=== PATIENT | female | born 1930 | race Caucasian/White ===

== ENCOUNTER 2017-11-01 15:16 | Inpatient (IN) ==
[2017-11-01] MEDS ORDERED: hydrALAZINE 20 MG/1 ML VIAL IV ONE ×2 (17:38→18:43)
[2017-11-01] MEDS ORDERED: SODIUM CHLORIDE 0.9% 1,000 ML IV PRN (18:34)
[2017-11-01] MEDS: CARVEDILOL 6.25 MG TABLET PO SCH (18:42)
[2017-11-01] MEDS ORDERED: FUROSEMIDE 20 MG TABLET PO PRN (19:35)
[2017-11-01] MEDS ORDERED: NITROGLYCERIN SL 0.4 MG TABLET SL PRN (19:35)
[2017-11-01] MEDS: CYANOCOBALAMIN 500 MCG TABLET PO SCH (20:49)
[2017-11-01] MEDS: FERROUS SULFATE 325 MG TABLET PO SCH (20:49)
[2017-11-01] MEDS: TERAZOSIN 1 MG CAPSULE PO SCH (20:50)
[2017-11-01] MEDS: ASPIRIN EC 81 MG TABLET PO SCH (20:50)
[2017-11-01] MEDS: CHOLECALCIFEROL 5,000 UNIT TABLET PO SCH (20:50)
[2017-11-01] MEDS: ACETAMINOPHEN 325 MG TABLET PO PRN (20:50)
[2017-11-01] MEDS ORDERED: KETOROLAC 30 MG/1 ML VIAL IV ONE (23:30)
[2017-11-02] MEDS: NITROGLYCERIN 2% OINT 1 INCH/GM PACK TOP SCH ×3 (01:14→14:44)
[2017-11-02] MEDS: ACETAMINOPHEN 325 MG TABLET PO PRN ×2 (04:43→09:22)
[2017-11-02] MEDS ORDERED: KETOROLAC 30 MG/1 ML VIAL IV ONE (06:00)
[2017-11-02 06:02] LABS: Basophils % 0.8 % (0.0-0.8); Eosinophils # 0.2 10*3/uL (0.0-0.87); Eosinophils % 3.3 % (0.00-10.9); Hematocrit 26.4 VOL% (35.7-47.0); Hemoglobin 8.1 GM/DL (12.0-16.0); Immature Granulocytes % 0.4 %; Immature Granulocytes Absolute 0.02 #; Lymphocytes # 1.3 10*3/uL (1.4-4.0); Lymphocytes % 25.4 % (21.3-54.2); Mean Corpuscular HGB Conc 30.7 GM/DL (32-36); Mean Corpuscular Hemoglobin 26 PG (27-34); Mean Corpuscular Volume 84.3 FL (87-102); Mean Platelet Volume 10.7 FL (9.6-12.0); Monocytes # 0.4 10*3/uL (0.11-0.8); Monocytes % 8.2 % (1.7-12.7); Neutrophils # 3.2 10*3/uL (1.4-7.4); Neutrophils % 61.9 % (38.7-73.9); Platelet Count 136 T/CUMM (130-400); Red Blood Count 3.13 MC/CUMM (3.8-5.5); Red Cell Distribution Width 16.4 % (9.3-17.3); White Blood Count 5.1 T/CUMM (4-12)
[2017-11-02] MEDS: ONDANSETRON 4 MG/2 ML VIAL IV PRN ×3 (06:17→21:26)
[2017-11-02 06:24] LABS: Calcium 8.6 MG/DL (8.5-10.1); Potassium 4.6 MMOL/L (3.5-5.1)
[2017-11-02] MEDS: hydrALAZINE 20 MG/1 ML VIAL IV PRN (06:39)
[2017-11-02] MEDS ORDERED: SODIUM CHLORIDE 0.65% NASAL SPRAY 45 ML BOTTLE BOTH NARES PRN (08:15)
[2017-11-02] MEDS: LEVOTHYROXINE 112 MCG TABLET PO SCH (09:22)
[2017-11-02] MEDS: LEFLUNOMIDE 10 MG TABLET PO SCH (09:22)
[2017-11-02] MEDS: CARVEDILOL 6.25 MG TABLET PO SCH (09:23)
[2017-11-02] MEDS: PANTOPRAZOLE 40 MG TABLET PO SCH (09:23)
[2017-11-02 10:25] LABS: Hematocrit 25.8 VOL% (35.7-47.0); Hemoglobin 8.2 GM/DL (12.0-16.0)
[2017-11-02 17:03] LABS: Hematocrit 25.4 VOL% (35.7-47.0); Hemoglobin 7.9 GM/DL (12.0-16.0)
[2017-11-02] MEDS ORDERED: SODIUM CHLORIDE 0.9% 1,000 ML IV PRN (18:54)
[2017-11-02] MEDS: TERAZOSIN 1 MG CAPSULE PO SCH (21:25)
[2017-11-02] MEDS: CHOLECALCIFEROL 5,000 UNIT TABLET PO SCH (21:25)
[2017-11-02] MEDS: ASPIRIN EC 81 MG TABLET PO SCH (21:25)
[2017-11-02] MEDS: CYANOCOBALAMIN 500 MCG TABLET PO SCH (21:25)
[2017-11-02] MEDS: CARVEDILOL 12.5 MG TABLET PO SCH (21:26)
[2017-11-02] MEDS: METHOCARBAMOL 750 MG TABLET PO PRN (21:26)
[2017-11-02] MEDS: FERROUS SULFATE 325 MG TABLET PO SCH (21:26)
[2017-11-02 23:03] LABS: Hematocrit 23.1 VOL% (35.7-47.0); Hemoglobin 7.1 GM/DL (12.0-16.0)
[2017-11-03] MEDS: ACETAMINOPHEN 325 MG TABLET PO PRN (00:05)
[2017-11-03] MEDS ORDERED: MORPHINE 4 MG/1 ML VIAL IV ONE (04:00)
[2017-11-03] MEDS: hydrALAZINE 20 MG/1 ML VIAL IV PRN ×2 (05:09→13:16)
[2017-11-03] MEDS: ONDANSETRON 4 MG/2 ML VIAL IV PRN ×3 (05:38→15:50)
[2017-11-03 05:42] LABS: Hematocrit 29.4 VOL% (35.7-47.0); Hemoglobin 9.3 GM/DL (12.0-16.0)
[2017-11-03 06:19] LABS: Calcium 8.8 MG/DL (8.5-10.1); Osmolality,Calculated 291.1 MOS/KG (273-304); Potassium 4.7 MMOL/L (3.5-5.1)
[2017-11-03 06:54] LABS: Risk Ratio 2.02; VLDL CHOLESTEROL 16.4 MG/DL
[2017-11-03] MEDS ORDERED: PROMETHAZINE 25 MG TABLET PO PRN ×2 (08:46→10:50)
[2017-11-03 08:51] LABS: Hematocrit 30.1 VOL% (35.7-47.0); Hemoglobin 9.8 GM/DL (12.0-16.0)
[2017-11-03] MEDS: LEFLUNOMIDE 10 MG TABLET PO SCH (10:25)
[2017-11-03] MEDS: CARVEDILOL 12.5 MG TABLET PO SCH ×2 (10:25→21:55)
[2017-11-03] MEDS: PANTOPRAZOLE 40 MG TABLET PO SCH (10:25)
[2017-11-03] MEDS: LEVOTHYROXINE 112 MCG TABLET PO SCH (10:26)
[2017-11-03 15:23] LABS: Hematocrit 30.1 VOL% (35.7-47.0); Hemoglobin 9.6 GM/DL (12.0-16.0)
[2017-11-03 21:44] LABS: Hemoglobin 9.2 GM/DL (12.0-16.0)
[2017-11-03] MEDS: FERROUS SULFATE 325 MG TABLET PO SCH (21:55)
[2017-11-03] MEDS: ASPIRIN EC 81 MG TABLET PO SCH (21:55)
[2017-11-03] MEDS: CYANOCOBALAMIN 500 MCG TABLET PO SCH (21:55)
[2017-11-03] MEDS: TERAZOSIN 1 MG CAPSULE PO SCH (21:55)
[2017-11-03] MEDS: METHOCARBAMOL 750 MG TABLET PO PRN (21:55)
[2017-11-03] MEDS: CHOLECALCIFEROL 5,000 UNIT TABLET PO SCH (21:55)
[2017-11-04] MEDS: hydrALAZINE 20 MG/1 ML VIAL IV PRN ×2 (04:17→08:34)
[2017-11-04 05:57] LABS: Basophils % 0.4 % (0.0-0.8); Eosinophils # 0.1 10*3/uL (0.0-0.87); Eosinophils % 1.1 % (0.00-10.9); Hematocrit 30.6 VOL% (35.7-47.0); Hemoglobin 9.7 GM/DL (12.0-16.0); Immature Granulocytes % 0.6 %; Immature Granulocytes Absolute 0.03 #; Lymphocytes # 1.2 10*3/uL (1.4-4.0); Lymphocytes % 22.8 % (21.3-54.2); Mean Corpuscular HGB Conc 31.7 GM/DL (32-36); Mean Corpuscular Hemoglobin 27 PG (27-34); Mean Corpuscular Volume 83.8 FL (87-102); Mean Platelet Volume 11.1 FL (9.6-12.0); Monocytes # 0.4 10*3/uL (0.11-0.8); Monocytes % 7.2 % (1.7-12.7); Neutrophils # 3.7 10*3/uL (1.4-7.4); Neutrophils % 67.9 % (38.7-73.9); Platelet Count 128 T/CUMM (130-400); Red Blood Count 3.65 MC/CUMM (3.8-5.5); Red Cell Distribution Width 16.5 % (9.3-17.3); White Blood Count 5.5 T/CUMM (4-12)
[2017-11-04 06:19] LABS: Calcium 8.9 MG/DL (8.5-10.1); Osmolality,Calculated 288.1 MOS/KG (273-304); Potassium 4.4 MMOL/L (3.5-5.1)
[2017-11-04] MEDS: ONDANSETRON 4 MG/2 ML VIAL IV PRN ×3 (06:32→17:14)
[2017-11-04] MEDS: predniSONE 5 MG TABLET PO SCH (08:32)
[2017-11-04] MEDS: CARVEDILOL 12.5 MG TABLET PO SCH ×2 (08:32→21:02)
[2017-11-04] MEDS: LEVOTHYROXINE 112 MCG TABLET PO SCH (08:32)
[2017-11-04] MEDS: LEFLUNOMIDE 10 MG TABLET PO SCH (08:32)
[2017-11-04] MEDS: PANTOPRAZOLE 40 MG TABLET PO SCH (08:32)
[2017-11-04] MEDS ORDERED: LISINOPRIL 5 MG TABLET PO SCH (12:00)
[2017-11-04] MEDS: CYANOCOBALAMIN 500 MCG TABLET PO SCH (21:00)
[2017-11-04] MEDS: METHOCARBAMOL 750 MG TABLET PO PRN (21:00)
[2017-11-04] MEDS: CHOLECALCIFEROL 5,000 UNIT TABLET PO SCH (21:01)
[2017-11-04] MEDS: ASPIRIN EC 81 MG TABLET PO SCH (21:02)
[2017-11-04] MEDS: TERAZOSIN 1 MG CAPSULE PO SCH (21:02)
[2017-11-04] MEDS: FERROUS SULFATE 325 MG TABLET PO SCH (21:02)
[2017-11-05 05:10] LABS: Basophils % 0.6 % (0.0-0.8); Eosinophils # 0.1 10*3/uL (0.0-0.87); Eosinophils % 1.1 % (0.00-10.9); Hematocrit 33.3 VOL% (35.7-47.0); Hemoglobin 9.8 GM/DL (12.0-16.0); Immature Granulocytes % 0.6 %; Immature Granulocytes Absolute 0.04 #; Lymphocytes # 1.7 10*3/uL (1.4-4.0); Lymphocytes % 26.7 % (21.3-54.2); Mean Corpuscular HGB Conc 29.4 GM/DL (32-36); Mean Corpuscular Hemoglobin 26 PG (27-34); Mean Corpuscular Volume 87.4 FL (87-102); Mean Platelet Volume 10.3 FL (9.6-12.0); Monocytes # 0.6 10*3/uL (0.11-0.8); Monocytes % 9.3 % (1.7-12.7); Neutrophils % 61.7 % (38.7-73.9); Platelet Count 134 T/CUMM (130-400); Red Blood Count 3.81 MC/CUMM (3.8-5.5); Red Cell Distribution Width 16.7 % (9.3-17.3); White Blood Count 6.5 T/CUMM (4-12)
[2017-11-05 05:47] LABS: Calcium 8.7 MG/DL (8.5-10.1); Osmolality,Calculated 284.3 MOS/KG (273-304); Potassium 4.7 MMOL/L (3.5-5.1)
[2017-11-05] MEDS ORDERED: PROPOFOL 200 MG/20 ML VIAL IV ONE (10:00)
[2017-11-05] MEDS ORDERED: LIDOCAINE 2% 5 ML VIAL ONE (10:00)
[2017-11-05] MEDS: PANTOPRAZOLE 40 MG TABLET PO SCH (10:20)
[2017-11-05] MEDS: predniSONE 5 MG TABLET PO SCH (10:20)
[2017-11-05] MEDS: LISINOPRIL 10 MG TABLET PO SCH (10:20)
[2017-11-05] MEDS: CARVEDILOL 12.5 MG TABLET PO SCH ×2 (10:20→20:40)
[2017-11-05] MEDS: LEVOTHYROXINE 112 MCG TABLET PO SCH (16:08)
[2017-11-05] MEDS: LEFLUNOMIDE 10 MG TABLET PO SCH (16:09)
[2017-11-05] MEDS: hydrALAZINE 20 MG/1 ML VIAL IV PRN (16:12)
[2017-11-05] MEDS: METHOCARBAMOL 750 MG TABLET PO PRN (20:40)
[2017-11-05] MEDS: FERROUS SULFATE 325 MG TABLET PO SCH (20:40)
[2017-11-05] MEDS: ASPIRIN EC 81 MG TABLET PO SCH (20:40)
[2017-11-05] MEDS: CHOLECALCIFEROL 5,000 UNIT TABLET PO SCH (20:40)
[2017-11-05] MEDS: CYANOCOBALAMIN 500 MCG TABLET PO SCH (20:40)
[2017-11-05] MEDS: TERAZOSIN 1 MG CAPSULE PO SCH (20:40)
[2017-11-05] MEDS: LORazepam 0.5 MG TABLET PO PRN (22:45)
[2017-11-06 05:41] LABS: Basophils % 0.6 % (0.0-0.8); Eosinophils # 0.1 10*3/uL (0.0-0.87); Eosinophils % 1.3 % (0.00-10.9); Hematocrit 28.5 VOL% (35.7-47.0); Hemoglobin 9.1 GM/DL (12.0-16.0); Immature Granulocytes % 0.6 %; Immature Granulocytes Absolute 0.03 #; Lymphocytes # 1.3 10*3/uL (1.4-4.0); Mean Corpuscular HGB Conc 31.9 GM/DL (32-36); Mean Corpuscular Hemoglobin 27 PG (27-34); Mean Corpuscular Volume 84.3 FL (87-102); Mean Platelet Volume 10.3 FL (9.6-12.0); Monocytes # 0.5 10*3/uL (0.11-0.8); Monocytes % 8.4 % (1.7-12.7); Neutrophils # 3.4 10*3/uL (1.4-7.4); Neutrophils % 64.1 % (38.7-73.9); Platelet Count 115 T/CUMM (130-400); Red Blood Count 3.38 MC/CUMM (3.8-5.5); Red Cell Distribution Width 16.7 % (9.3-17.3); White Blood Count 5.4 T/CUMM (4-12)
[2017-11-06 06:06] LABS: Calcium 8.1 MG/DL (8.5-10.1); Osmolality,Calculated 280.5 MOS/KG (273-304); Potassium 4.1 MMOL/L (3.5-5.1)
[2017-11-06] MEDS: LEVOTHYROXINE 112 MCG TABLET PO SCH (06:48)
[2017-11-06] MEDS: LEFLUNOMIDE 10 MG TABLET PO SCH (09:37)
[2017-11-06] MEDS: predniSONE 5 MG TABLET PO SCH (09:37)
[2017-11-06] MEDS: CARVEDILOL 12.5 MG TABLET PO SCH ×2 (09:37→21:48)
[2017-11-06] MEDS: LISINOPRIL 10 MG TABLET PO SCH (09:37)
[2017-11-06] MEDS: PANTOPRAZOLE 40 MG TABLET PO SCH (09:37)
[2017-11-06] MEDS ORDERED: SUMAtriptan 25 MG TABLET PO PRN (12:28)
[2017-11-06] MEDS: METHOCARBAMOL 750 MG TABLET PO PRN (21:48)
[2017-11-06] MEDS: CHOLECALCIFEROL 5,000 UNIT TABLET PO SCH (21:48)
[2017-11-06] MEDS: LORazepam 0.5 MG TABLET PO PRN (21:48)
[2017-11-06] MEDS: CYANOCOBALAMIN 500 MCG TABLET PO SCH (21:48)
[2017-11-06] MEDS: ASPIRIN EC 81 MG TABLET PO SCH (21:48)
[2017-11-06] MEDS: FERROUS SULFATE 325 MG TABLET PO SCH (21:48)
[2017-11-06] MEDS: TERAZOSIN 1 MG CAPSULE PO SCH (21:49)
[2017-11-07] MEDS: LEVOTHYROXINE 112 MCG TABLET PO SCH (05:32)
[2017-11-07 09:44] LABS: Basophils % 0.6 % (0.0-0.8); Eosinophils # 0.2 10*3/uL (0.0-0.87); Eosinophils % 2.8 % (0.00-10.9); Hematocrit 33.6 VOL% (35.7-47.0); Hemoglobin 10.3 GM/DL (12.0-16.0); Immature Granulocytes % 0.5 %; Immature Granulocytes Absolute 0.03 #; Lymphocytes # 1.7 10*3/uL (1.4-4.0); Mean Corpuscular HGB Conc 30.7 GM/DL (32-36); Mean Corpuscular Hemoglobin 27 PG (27-34); Mean Platelet Volume 10.6 FL (9.6-12.0); Monocytes # 0.3 10*3/uL (0.11-0.8); Monocytes % 5.2 % (1.7-12.7); Neutrophils # 4.2 10*3/uL (1.4-7.4); Neutrophils % 64.9 % (38.7-73.9); Platelet Count 138 T/CUMM (130-400); Red Blood Count 3.86 MC/CUMM (3.8-5.5); Red Cell Distribution Width 17.3 % (9.3-17.3); White Blood Count 6.5 T/CUMM (4-12)
[2017-11-07 09:56] LABS: Calcium 8.4 MG/DL (8.5-10.1); Osmolality,Calculated 286.4 MOS/KG (273-304); Potassium 4.2 MMOL/L (3.5-5.1)
[2017-11-07] MEDS: ACETAMINOPHEN 325 MG TABLET PO PRN (09:56)
[2017-11-07] MEDS: PANTOPRAZOLE 40 MG TABLET PO SCH (09:57)
[2017-11-07] MEDS: predniSONE 5 MG TABLET PO SCH (09:57)
[2017-11-07] MEDS: CARVEDILOL 12.5 MG TABLET PO SCH ×2 (09:57→21:23)
[2017-11-07] MEDS: LISINOPRIL 10 MG TABLET PO SCH (09:57)
[2017-11-07] MEDS: LEFLUNOMIDE 10 MG TABLET PO SCH (09:57)
[2017-11-07] MEDS: ASPIRIN EC 81 MG TABLET PO SCH (21:21)
[2017-11-07] MEDS: CYANOCOBALAMIN 500 MCG TABLET PO SCH (21:22)
[2017-11-07] MEDS: FERROUS SULFATE 325 MG TABLET PO SCH (21:22)
[2017-11-07] MEDS: CHOLECALCIFEROL 5,000 UNIT TABLET PO SCH (21:23)
[2017-11-07] MEDS: TERAZOSIN 1 MG CAPSULE PO SCH (21:23)
[2017-11-08 05:37] LABS: Basophils % 0.7 % (0.0-0.8); Eosinophils # 0.1 10*3/uL (0.0-0.87); Eosinophils % 2.3 % (0.00-10.9); Hematocrit 30.3 VOL% (35.7-47.0); Hemoglobin 9.1 GM/DL (12.0-16.0); Immature Granulocytes % 0.7 %; Immature Granulocytes Absolute 0.04 #; Lymphocytes # 1.5 10*3/uL (1.4-4.0); Lymphocytes % 25.3 % (21.3-54.2); Mean Corpuscular Hemoglobin 27 PG (27-34); Mean Corpuscular Volume 88.1 FL (87-102); Mean Platelet Volume 10.4 FL (9.6-12.0); Monocytes # 0.5 10*3/uL (0.11-0.8); Monocytes % 8.7 % (1.7-12.7); Neutrophils # 3.7 10*3/uL (1.4-7.4); Neutrophils % 62.3 % (38.7-73.9); Platelet Count 109 T/CUMM (130-400); Red Blood Count 3.44 MC/CUMM (3.8-5.5); Red Cell Distribution Width 17.6 % (9.3-17.3)
[2017-11-08] MEDS: LEVOTHYROXINE 112 MCG TABLET PO SCH (06:52)
[2017-11-08] MEDS: CARVEDILOL 12.5 MG TABLET PO SCH (10:11)
[2017-11-08] MEDS: predniSONE 5 MG TABLET PO SCH (10:11)
[2017-11-08] MEDS: LISINOPRIL 10 MG TABLET PO SCH (10:11)
[2017-11-08] MEDS: PANTOPRAZOLE 40 MG TABLET PO SCH (10:11)
[2017-11-08] MEDS: LEFLUNOMIDE 10 MG TABLET PO SCH (10:11)
[2017-11-08 11:26] VITALS: BP 132/72
== END 2017-11-08 13:30 | disposition home or self-care (01) | DRG 378 ==
LOC: N.5E 15:54 → SUATTDRO 15:54 → N.TELES 19:50
PROVIDERS: ADMIT Internal Medicine; ATTEND Internal Medicine

== ENCOUNTER 2019-01-09 00:18 | Inpatient (IN) ==
[2019-01-09] MEDS ORDERED: PANTOPRAZOLE 40 MG VIAL IV STA (00:55)
[2019-01-09] MEDS ORDERED: SODIUM CHLORIDE 0.9% 500 ML IV STA (00:55)
[2019-01-09] MEDS ORDERED: ONDANSETRON 4 MG/2 ML VIAL IV STA (00:55)
[2019-01-09 01:31] LABS: Basophils % 0.3 % (0.0-0.8); Eosinophils % 0.1 % (0.00-10.9); Immature Granulocytes % 0.6 %; Immature Granulocytes Absolute 0.05 #; Lymphocytes # 1.1 10*3/uL (1.4-4.0); Lymphocytes % 13.6 % (21.3-54.2); Mean Corpuscular HGB Conc 29.4 GM/DL (32-36); Mean Corpuscular Volume 111.8 FL (87-102); Monocytes % 5.9 % (1.7-12.7); Neutrophils % 79.5 % (38.7-73.9); Platelet Count 148 T/CUMM (130-400); Red Blood Count 1.61 MC/CUMM (3.8-5.5); Red Cell Distribution Width 17.2 % (9.3-17.3); White Blood Count 7.9 T/CUMM (4-12)
[2019-01-09 01:34] LABS: Hemoglobin 5.3 GM/DL (12.0-16.0)
[2019-01-09 01:42] LABS: Apearance,Urine CLEAR (Clear); Bilirubin,Urine Negative (Negative); Blood, Urine Negative (Negative); Glucose,Urine (UA) Negative (Negative); Hyaline Casts,Urine 1 /LPF (0-3); Ketones,Urine Negative (Negative); Mucus,Urine Occasional /LPF (Occasional); Nitrite,Urine Negative (Negative); Protein,Urine Negative; RBC,Urine <1 /HPF (0-4); Urine Color Yellow (Yellow); Urine Specific Gravity 1.012 (1.001-1.035); Urine Urobilinogen < 2.0 EU/DL (0.2-1.0); WBC,Urine 1 /HPF (0-6)
[2019-01-09 01:43] LABS: INR 1.1; PT Patient Result 11.4 SECS; Partial Thromboplastin Time 24.3 SECS (0-40)
[2019-01-09 01:49] LABS: Barbiturates Screen,Urine Negative (Negative); Benzodiazepines Screen,Urine Negative (Negative); Cannabinoid Screen,Urine Negative (Negative); Opiate Screen,Urine Positive (Negative); Phencyclidine Screen,Urine Negative (Negative)
[2019-01-09 01:54] LABS: Alanine Aminotransferase 12 U/L (13-56); Alkaline Phosphatase 100 U/L (45-117); Aspartate Amino Transferase 13 U/L (0-37); Bilirubin,Total < 0.39 MG/DL (0.2-1.0); Blood Urea Nitrogen 61 MG/DL (7-18); Calcium 7.9 MG/DL (8.5-10.1); Glucose 125 MG/DL (74-106); Osmolality,Calculated 300.1 MOS/KG (273-304); Total Protein 5.5 G/DL (6.4-8.3); Troponin I < 0.015 NG/ML (0.00-0.045)
[2019-01-09 01:56] LABS: Anisocytosis 1+; Hypochromasia 1+; Ovalocytes 1+; Platelet Estimate Adequate
[2019-01-09] MEDS ORDERED: SODIUM CHLORIDE 0.9% 1,000 ML IV PRN (02:45)
[2019-01-09] MEDS ORDERED: NITROGLYCERIN SL 0.4 MG TABLET SL PRN (02:48)
[2019-01-09] MEDS: SODIUM CHLORIDE 0.9% 1,000 ML IV SCH ×3 (03:30→18:09)
[2019-01-09] MEDS: PANTOPRAZOLE INJ 200 MG in SODIUM CHLORIDE 0.9% 250 ML IV SCH (05:00)
[2019-01-09 05:49] LABS: Basophils % 0.1 % (0.0-0.8); Immature Granulocytes % 0.6 %; Immature Granulocytes Absolute 0.05 #; Lymphocytes # 1.5 10*3/uL (1.4-4.0); Lymphocytes % 19.1 % (21.3-54.2); Mean Corpuscular HGB Conc 29.7 GM/DL (32-36); Mean Corpuscular Volume 111.5 FL (87-102); Monocytes % 5.2 % (1.7-12.7); Platelet Count 140 T/CUMM (130-400); Red Blood Count 1.48 MC/CUMM (3.8-5.5); Red Cell Distribution Width 17.4 % (9.3-17.3); White Blood Count 7.8 T/CUMM (4-12)
[2019-01-09 05:52] LABS: Hematocrit 16.5 VOL% (35.7-47.0); Hemoglobin 4.9 GM/DL (12.0-16.0)
[2019-01-09 06:11] LABS: Anisocytosis 1+; Macrocytosis 1+; Ovalocytes Slight; Polychromasia Slight
[2019-01-09 06:12] LABS: Hypochromasia 1+; Platelet Estimate Adequate
[2019-01-09 06:13] LABS: Calcium 7.5 MG/DL (8.5-10.1); Osmolality,Calculated 302.8 MOS/KG (273-304)
[2019-01-09] MEDS: LEVOTHYROXINE 125 MCG TABLET PO SCH (08:10)
[2019-01-09] MEDS: ONDANSETRON 4 MG/2 ML VIAL IV PRN (08:42)
[2019-01-09] MEDS ORDERED: NIFEdipine 10 MG CAPSULE PO PRN (11:30)
[2019-01-09] MEDS: CARVEDILOL 12.5 MG TABLET PO SCH ×2 (11:57→20:20)
[2019-01-09] MEDS: PRAZOSIN 1 MG CAPSULE PO SCH (20:20)
[2019-01-09] MEDS: ZALEPLON 5 MG CAPSULE PO PRN (21:00)
[2019-01-10] MEDS: SODIUM CHLORIDE 0.9% 1,000 ML IV SCH (01:12)
[2019-01-10] MEDS: PANTOPRAZOLE INJ 200 MG in SODIUM CHLORIDE 0.9% 250 ML IV SCH (04:43)
[2019-01-10 05:04] LABS: Basophils % 0.6 % (0.0-0.8); Eosinophils # 0.1 10*3/uL (0.0-0.87); Eosinophils % 2.3 % (0.00-10.9); Hemoglobin 8.6 GM/DL (12.0-16.0); Immature Granulocytes % 0.6 %; Immature Granulocytes Absolute 0.03 #; Lymphocytes # 0.8 10*3/uL (1.4-4.0); Lymphocytes % 14.6 % (21.3-54.2); Mean Corpuscular HGB Conc 31.9 GM/DL (32-36); Mean Corpuscular Volume 94.7 FL (87-102); Mean Platelet Volume 9.9 FL (9.6-12.0); Monocytes % 7.6 % (1.7-12.7); Neutrophils % 74.3 % (38.7-73.9); Red Blood Count 2.85 MC/CUMM (3.8-5.5); Red Cell Distribution Width 21.3 % (9.3-17.3); White Blood Count 5.1 T/CUMM (4-12)
[2019-01-10 05:15] LABS: Platelet Count 99 T/CUMM (130-400)
[2019-01-10 05:16] LABS: Calcium 7.6 MG/DL (8.5-10.1); Osmolality,Calculated 304.4 MOS/KG (273-304)
[2019-01-10 05:26] LABS: Hypochromasia 1+; Platelet Estimate Decreased
[2019-01-10 05:27] LABS: Macrocytosis Slight
[2019-01-10] MEDS: LEVOTHYROXINE 125 MCG TABLET PO SCH (07:56)
[2019-01-10] MEDS: ACETAMINOPHEN 325 MG TABLET PO PRN ×2 (07:57→17:27)
[2019-01-10] MEDS ORDERED: LACTATED RINGERS 1,000 ML IV SCH (08:00)
[2019-01-10] MEDS: CARVEDILOL 12.5 MG TABLET PO SCH ×2 (08:00→21:45)
[2019-01-10] MEDS ORDERED: LIDOCAINE 100 MG/5 ML SYRINGE ONE (09:00)
[2019-01-10] MEDS ORDERED: PROPOFOL 200 MG/20 ML VIAL IV ONE (09:00)
[2019-01-10] MEDS: ZALEPLON 5 MG CAPSULE PO PRN (21:45)
[2019-01-10] MEDS: PRAZOSIN 1 MG CAPSULE PO SCH (21:45)
[2019-01-11 05:30] LABS: Basophils % 0.5 % (0.0-0.8); Eosinophils # 0.1 10*3/uL (0.0-0.87); Eosinophils % 3.2 % (0.00-10.9); Hematocrit 25.4 VOL% (35.7-47.0); Hemoglobin 7.9 GM/DL (12.0-16.0); Immature Granulocytes % 0.5 %; Immature Granulocytes Absolute 0.02 #; Lymphocytes # 0.6 10*3/uL (1.4-4.0); Lymphocytes % 13.8 % (21.3-54.2); Mean Corpuscular HGB Conc 31.1 GM/DL (32-36); Mean Corpuscular Volume 98.1 FL (87-102); Mean Platelet Volume 10.2 FL (9.6-12.0); Monocytes % 9.8 % (1.7-12.7); Neutrophils % 72.2 % (38.7-73.9); Platelet Count 89 T/CUMM (130-400); Red Blood Count 2.59 MC/CUMM (3.8-5.5); White Blood Count 4.4 T/CUMM (4-12)
[2019-01-11 05:42] LABS: Calcium 7.6 MG/DL (8.5-10.1); Osmolality,Calculated 301.4 MOS/KG (273-304)
[2019-01-11 06:31] LABS: Anisocytosis 1+; Macrocytosis 1+; Ovalocytes Slight; Tear Drop Cells Slight
[2019-01-11 06:32] LABS: Hypochromasia Slight; Platelet Estimate Decreased
[2019-01-11] MEDS: CARVEDILOL 12.5 MG TABLET PO SCH ×2 (08:26→21:03)
[2019-01-11] MEDS: LEVOTHYROXINE 125 MCG TABLET PO SCH (08:26)
[2019-01-11] MEDS ORDERED: SODIUM CHLORIDE 0.9% 1,000 ML IV PRN (08:30)
[2019-01-11] MEDS: ACETAMINOPHEN 325 MG TABLET PO PRN (21:03)
[2019-01-11] MEDS: ONDANSETRON 4 MG/2 ML VIAL IV PRN (22:41)
[2019-01-11] MEDS: PRAZOSIN 1 MG CAPSULE PO SCH (22:43)
[2019-01-12] MEDS: ZALEPLON 5 MG CAPSULE PO PRN (00:27)
[2019-01-12] MEDS: LEVOTHYROXINE 125 MCG TABLET PO SCH (07:13)
[2019-01-12 08:00] LABS: Basophils % 0.5 % (0.0-0.8); Eosinophils # 0.2 10*3/uL (0.0-0.87); Eosinophils % 4.4 % (0.00-10.9); Hematocrit 32.6 VOL% (35.7-47.0); Immature Granulocytes % 0.3 %; Immature Granulocytes Absolute 0.01 #; Lymphocytes # 0.7 10*3/uL (1.4-4.0); Lymphocytes % 18.8 % (21.3-54.2); Mean Corpuscular HGB Conc 31.3 GM/DL (32-36); Mean Corpuscular Volume 95.6 FL (87-102); Mean Platelet Volume 9.9 FL (9.6-12.0); Monocytes % 9.9 % (1.7-12.7); Neutrophils % 66.1 % (38.7-73.9); Platelet Count 90 T/CUMM (130-400); Red Cell Distribution Width 19.7 % (9.3-17.3); White Blood Count 3.8 T/CUMM (4-12)
[2019-01-12 08:01] LABS: Hemoglobin 10.2 GM/DL (12.0-16.0); Red Blood Count 3.41 MC/CUMM (3.8-5.5)
[2019-01-12 08:17] LABS: Macrocytosis 1+; Polychromasia Slight
[2019-01-12 08:18] LABS: Hypochromasia Slight; Platelet Estimate Decreased
[2019-01-12] MEDS: CARVEDILOL 12.5 MG TABLET PO SCH ×2 (08:29→20:12)
[2019-01-12] MEDS: ACETAMINOPHEN 325 MG TABLET PO PRN (08:32)
[2019-01-12 08:38] LABS: Calcium 7.7 MG/DL (8.5-10.1); Osmolality,Calculated 296.6 MOS/KG (273-304)
[2019-01-12] MEDS ORDERED: PANTOPRAZOLE 40 MG VIAL IV SCH (09:00)
[2019-01-12] MEDS ORDERED: BISACODYL 5 MG TABLET PO ONE (12:00)
[2019-01-12] MEDS ORDERED: POLYETHYLENE GLYCOL POWDER 255 GM BOTTLE PO ONE (15:00)
[2019-01-12] MEDS: PRAZOSIN 1 MG CAPSULE PO SCH (20:12)
[2019-01-12] MEDS: CYCLOBENZAPRINE 10 MG TABLET PO PRN (23:22)
[2019-01-13 05:53] LABS: Basophils % 0.5 % (0.0-0.8); Eosinophils # 0.2 10*3/uL (0.0-0.87); Hematocrit 36.1 VOL% (35.7-47.0); Hemoglobin 11.6 GM/DL (12.0-16.0); Immature Granulocytes % 0.5 %; Immature Granulocytes Absolute 0.03 #; Lymphocytes # 0.6 10*3/uL (1.4-4.0); Lymphocytes % 11.1 % (21.3-54.2); Mean Corpuscular HGB Conc 32.1 GM/DL (32-36); Mean Platelet Volume 10.4 FL (9.6-12.0); Monocytes % 9.6 % (1.7-12.7); Neutrophils % 74.3 % (38.7-73.9); Red Cell Distribution Width 19.9 % (9.3-17.3); White Blood Count 5.5 T/CUMM (4-12)
[2019-01-13] MEDS ORDERED: MAGNESIUM CITRATE 300 ML BOTTLE PO ONE (06:00)
[2019-01-13 06:01] LABS: Platelet Count 96 T/CUMM (130-400)
[2019-01-13 06:15] LABS: Hypochromasia 1+; Ovalocytes Slight; Platelet Estimate Decreased
[2019-01-13 06:16] LABS: Macrocytosis Slight
[2019-01-13] MEDS: CARVEDILOL 12.5 MG TABLET PO SCH ×2 (08:05→20:57)
[2019-01-13] MEDS: PANTOPRAZOLE 40 MG TABLET PO SCH (08:05)
[2019-01-13] MEDS: LEVOTHYROXINE 125 MCG TABLET PO SCH (08:08)
[2019-01-13] MEDS: ONDANSETRON 4 MG/2 ML VIAL IV PRN (08:22)
[2019-01-13] MEDS ORDERED: LIDOCAINE 2% 5 ML VIAL ONE (09:00)
[2019-01-13] MEDS ORDERED: PROPOFOL 200 MG/20 ML VIAL IV ONE (09:00)
[2019-01-13] MEDS ORDERED: hydrALAZINE 20 MG/1 ML VIAL IV PRN (10:18)
[2019-01-13] MEDS ORDERED: LACTATED RINGERS 1,000 ML IV SCH (10:30)
[2019-01-13] MEDS: ACETAMINOPHEN 325 MG TABLET PO PRN ×2 (16:23→23:17)
[2019-01-13] MEDS: CYCLOBENZAPRINE 10 MG TABLET PO PRN (16:23)
[2019-01-13] MEDS: PRAZOSIN 1 MG CAPSULE PO SCH (20:57)
[2019-01-13] MEDS: POTASSIUM CHLORIDE RIDER 10 MEQ in PREMIX 1 EACH IV PRN ×3 (20:58→23:50)
[2019-01-13] MEDS: ZALEPLON 5 MG CAPSULE PO PRN (21:11)
[2019-01-14 04:56] LABS: Basophils % 0.4 % (0.0-0.8); Eosinophils # 0.1 10*3/uL (0.0-0.87); Eosinophils % 2.6 % (0.00-10.9); Hematocrit 32.4 VOL% (35.7-47.0); Immature Granulocytes % 0.4 %; Immature Granulocytes Absolute 0.02 #; Lymphocytes # 0.6 10*3/uL (1.4-4.0); Lymphocytes % 11.1 % (21.3-54.2); Mean Corpuscular HGB Conc 30.9 GM/DL (32-36); Mean Corpuscular Volume 97.3 FL (87-102); Mean Platelet Volume 10.2 FL (9.6-12.0); Monocytes % 11.9 % (1.7-12.7); Neutrophils % 73.6 % (38.7-73.9); Red Blood Count 3.33 MC/CUMM (3.8-5.5); Red Cell Distribution Width 19.3 % (9.3-17.3)
[2019-01-14 05:09] LABS: Platelet Count 90 T/CUMM (130-400)
[2019-01-14 05:22] LABS: Calcium 7.9 MG/DL (8.5-10.1)
[2019-01-14 05:23] LABS: Hypochromasia Slight; Macrocytosis Slight; Platelet Estimate Decreased
[2019-01-14] MEDS ORDERED: LEVOTHYROXINE 137 MCG TABLET PO SCH (06:30)
[2019-01-14] MEDS: CYCLOBENZAPRINE 10 MG TABLET PO PRN (08:35)
[2019-01-14] MEDS: PANTOPRAZOLE 40 MG TABLET PO SCH (08:35)
[2019-01-14] MEDS: CARVEDILOL 12.5 MG TABLET PO SCH (08:36)
[2019-01-14 12:20] VITALS: BP 160/92
== END 2019-01-14 15:56 | disposition home or self-care (01) | DRG 813 ==
LOC: N.ED 00:18 → SUATTDRO 02:43 → N.EDINP 02:43 → N.CC 03:02 → N.2E 01-10 16:54
PROVIDERS: ADMIT Internal Medicine

== ENCOUNTER 2019-03-04 11:51 | Inpatient (IN) ==
[2019-03-04] MEDS ORDERED: PANTOPRAZOLE 40 MG VIAL IV STA (13:03)
[2019-03-04] MEDS ORDERED: SODIUM CHLORIDE 0.9% 1,000 ML IV PRN ×2 (13:05→15:27)
[2019-03-04 13:48] LABS: Basophils % 0.6 % (0.0-0.8); Eosinophils % 0.6 % (0.00-10.9); Hematocrit 19.3 VOL% (35.7-47.0); Immature Granulocytes % 0.6 %; Immature Granulocytes Absolute 0.03 #; Lymphocytes % 18.6 % (21.3-54.2); Mean Corpuscular HGB Conc 31.6 GM/DL (32-36); Mean Corpuscular Volume 101.6 FL (87-102); Mean Platelet Volume 10.1 FL (9.6-12.0); Neutrophils % 74.6 % (38.7-73.9); Platelet Count 115 T/CUMM (130-400); Red Cell Distribution Width 18.2 % (9.3-17.3); White Blood Count 5.4 T/CUMM (4-12)
[2019-03-04 13:50] LABS: Hemoglobin 6.1 GM/DL (12.0-16.0)
[2019-03-04 13:52] LABS: INR 1.1
[2019-03-04 14:02] LABS: Albumin 3.5 G/DL (3.4-5.0); Bilirubin,Total 0.4 MG/DL (0.2-1.0); Calcium 8.1 MG/DL (8.5-10.1); Osmolality,Calculated 296.1 MOS/KG (273-304); Total Protein 5.9 G/DL (6.4-8.3)
[2019-03-04] MEDS ORDERED: ACETAMINOPHEN 325 MG TABLET PO PRN (15:15)
[2019-03-04] MEDS ORDERED: ZALEPLON 5 MG CAPSULE PO PRN (15:15)
[2019-03-04] MEDS ORDERED: traZODone 50 MG TABLET PO PRN (15:15)
[2019-03-04] MEDS ORDERED: NITROGLYCERIN SL 0.4 MG TABLET SL PRN (15:29)
[2019-03-04] MEDS ORDERED: SUMAtriptan 25 MG TABLET PO PRN ×2 (15:29→17:42)
[2019-03-04] MEDS ORDERED: predniSONE 5 MG TABLET PO PRN (15:29)
[2019-03-04] MEDS ORDERED: FUROSEMIDE 20 MG TABLET PO PRN (15:29)
[2019-03-04] MEDS ORDERED: SODIUM CHLORIDE 0.45% 1,000 ML IV SCH (15:30)
[2019-03-04 16:58] LABS: Hematocrit 17.9 VOL% (35.7-47.0); Hemoglobin 5.6 GM/DL (12.0-16.0)
[2019-03-04] MEDS ORDERED: INFLUENZA VIRUS VACCINE 0.5 ML SYRINGE IM ONE (17:11)
[2019-03-04] MEDS: FERROUS SULFATE 325 MG TABLET PO SCH (21:45)
[2019-03-04] MEDS: CYCLOBENZAPRINE 10 MG TABLET PO PRN (21:46)
[2019-03-04 23:07] LABS: Hemoglobin 5.1 GM/DL (12.0-16.0)
[2019-03-04 23:08] LABS: Hematocrit 16.6 VOL% (35.7-47.0)
[2019-03-05] MEDS: ONDANSETRON 4 MG/2 ML VIAL IV PRN (00:50)
[2019-03-05] MEDS: LEVOTHYROXINE 137 MCG TABLET PO SCH (06:09)
[2019-03-05 07:23] LABS: Basophils # 0.1 10*3/uL (0.0-0.2); Basophils % 0.7 % (0.0-0.8); Eosinophils # 0.2 10*3/uL (0.0-0.87); Immature Granulocytes % 0.4 %; Immature Granulocytes Absolute 0.03 #; Lymphocytes # 1.7 10*3/uL (1.4-4.0); Lymphocytes % 22.5 % (21.3-54.2); Mean Corpuscular HGB Conc 32.2 GM/DL (32-36); Mean Corpuscular Volume 96.4 FL (87-102); Mean Platelet Volume 9.8 FL (9.6-12.0); Monocytes % 9.6 % (1.7-12.7); Neutrophils % 64.8 % (38.7-73.9); Platelet Count 106 T/CUMM (130-400); Red Cell Distribution Width 18.6 % (9.3-17.3)
[2019-03-05 07:30] LABS: White Blood Count 7.4 T/CUMM (4-12)
[2019-03-05 07:31] LABS: Hemoglobin 8.7 GM/DL (12.0-16.0)
[2019-03-05 07:54] LABS: Albumin 3.3 G/DL (3.4-5.0); Bilirubin,Total 1.5 MG/DL (0.2-1.0); Calcium 7.9 MG/DL (8.5-10.1); Osmolality,Calculated 291.3 MOS/KG (273-304); Total Protein 5.7 G/DL (6.4-8.3)
[2019-03-05] MEDS ORDERED: LEVOTHYROXINE 125 MCG TABLET PO SCH (09:00)
[2019-03-05] MEDS ORDERED: carvediloL 12.5 MG TABLET PO SCH (09:00)
[2019-03-05] MEDS: LEFLUNOMIDE 10 MG TABLET PO SCH (09:00)
[2019-03-05] MEDS: PANTOPRAZOLE 40 MG TABLET PO SCH (09:01)
[2019-03-05] MEDS: CITALOPRAM 20 MG TABLET PO SCH (09:01)
[2019-03-05] MEDS: CALCIUM (CARBONATE) 600 MG TABLET PO SCH (09:01)
[2019-03-05] MEDS: FOLIC ACID 0.4 MG TABLET PO SCH (09:01)
[2019-03-05] MEDS: FERROUS SULFATE 325 MG TABLET PO SCH ×2 (09:01→21:02)
[2019-03-05] MEDS: CHOLECALCIFEROL 1,000 UNIT TABLET PO SCH (09:01)
[2019-03-05] MEDS: CYANOCOBALAMIN 500 MCG TABLET PO SCH (09:01)
[2019-03-05] MEDS: MULTIVITAMIN (CENTRUM) TABLET PO SCH (09:01)
[2019-03-05 09:02] LABS: Hematocrit 26.1 VOL% (35.7-47.0); Hemoglobin 8.8 GM/DL (12.0-16.0)
[2019-03-05] MEDS: CYCLOBENZAPRINE 10 MG TABLET PO PRN ×2 (14:09→21:03)
[2019-03-05] MEDS: carvediloL 12.5 MG TABLET PO SCH (21:02)
[2019-03-05] MEDS: PRAZOSIN 1 MG CAPSULE PO SCH (21:02)
[2019-03-06 05:53] LABS: Risk Ratio 2.66; VLDL CHOLESTEROL 19.8 MG/DL
[2019-03-06 05:54] LABS: Bilirubin,Total 0.9 MG/DL (0.2-1.0); Calcium 7.9 MG/DL (8.5-10.1); Osmolality,Calculated 294.7 MOS/KG (273-304); Total Protein 5.1 G/DL (6.4-8.3)
[2019-03-06] MEDS: LEVOTHYROXINE 137 MCG TABLET PO SCH (06:21)
[2019-03-06 06:36] LABS: Basophils % 0.7 % (0.0-0.8); Eosinophils # 0.2 10*3/uL (0.0-0.87); Eosinophils % 3.8 % (0.00-10.9); Hematocrit 24.5 VOL% (35.7-47.0); Immature Granulocytes % 0.7 %; Immature Granulocytes Absolute 0.03 #; Lymphocytes # 1.2 10*3/uL (1.4-4.0); Lymphocytes % 26.6 % (21.3-54.2); Mean Corpuscular HGB Conc 32.7 GM/DL (32-36); Mean Corpuscular Volume 96.8 FL (87-102); Mean Platelet Volume 9.8 FL (9.6-12.0); Monocytes % 8.9 % (1.7-12.7); Neutrophils % 59.3 % (38.7-73.9); Red Blood Count 2.53 MC/CUMM (3.8-5.5); White Blood Count 4.5 T/CUMM (4-12)
[2019-03-06 06:38] LABS: Platelet Count 98 T/CUMM (130-400)
[2019-03-06 07:04] LABS: Anisocytosis 1+; Hypochromasia Slight; Macrocytosis 1+; Ovalocytes Few; Polychromasia Slight; Tear Drop Cells Slight
[2019-03-06 07:05] LABS: Platelet Estimate Decreased
[2019-03-06] MEDS: carvediloL 12.5 MG TABLET PO SCH ×2 (09:05→20:33)
[2019-03-06] MEDS: PANTOPRAZOLE 40 MG TABLET PO SCH (09:05)
[2019-03-06] MEDS: FOLIC ACID 0.4 MG TABLET PO SCH (09:05)
[2019-03-06] MEDS: FERROUS SULFATE 325 MG TABLET PO SCH ×2 (09:05→20:32)
[2019-03-06] MEDS: CHOLECALCIFEROL 1,000 UNIT TABLET PO SCH (09:06)
[2019-03-06] MEDS: CYANOCOBALAMIN 500 MCG TABLET PO SCH (09:07)
[2019-03-06] MEDS: CITALOPRAM 20 MG TABLET PO SCH (09:07)
[2019-03-06] MEDS: LEFLUNOMIDE 10 MG TABLET PO SCH (09:07)
[2019-03-06] MEDS: MULTIVITAMIN (CENTRUM) TABLET PO SCH (09:08)
[2019-03-06] MEDS: CALCIUM (CARBONATE) 600 MG TABLET PO SCH (09:08)
[2019-03-06] MEDS ORDERED: SODIUM CHLORIDE 0.9% 1,000 ML IV PRN (10:10)
[2019-03-06] MEDS ORDERED: FUROSEMIDE 20 MG/2 ML VIAL IV SCH (10:30)
[2019-03-06] MEDS: ONDANSETRON 4 MG/2 ML VIAL IV PRN (11:34)
[2019-03-06] MEDS: CYCLOBENZAPRINE 10 MG TABLET PO PRN ×2 (11:51→20:33)
[2019-03-06 18:05] LABS: Hematocrit 34.6 VOL% (35.7-47.0)
[2019-03-06 18:22] LABS: Hemoglobin 11.3 GM/DL (12.0-16.0)
[2019-03-06 18:35] LABS: Apearance,Urine CLEAR (Clear); Bacteria,Urine Occasional /HPF (Few); Bilirubin,Urine Negative (Negative); Blood, Urine Negative (Negative); Glucose,Urine (UA) Negative (Negative); Ketones,Urine Negative (Negative); Mucus,Urine Occasional /LPF (Occasional); Nitrite,Urine Negative (Negative); Protein,Urine Negative; RBC,Urine 1 /HPF (0-4); Squamous Epithelial Cell,Urine Occasional /HPF (0-10); Urine Color Yellow (Yellow); Urine Specific Gravity 1.017 (1.001-1.035); Urine Urobilinogen < 2.0 EU/DL (0.2-1.0); WBC,Urine 12 /HPF (0-6)
[2019-03-06] MEDS: PRAZOSIN 1 MG CAPSULE PO SCH (20:33)
[2019-03-07] MEDS: LEVOTHYROXINE 137 MCG TABLET PO SCH (06:08)
[2019-03-07 08:08] LABS: Basophils % 0.8 % (0.0-0.8); Eosinophils # 0.2 10*3/uL (0.0-0.87); Eosinophils % 4.3 % (0.00-10.9); Hematocrit 35.4 VOL% (35.7-47.0); Hemoglobin 11.6 GM/DL (12.0-16.0); Immature Granulocytes % 0.6 %; Immature Granulocytes Absolute 0.03 #; Lymphocytes % 19.4 % (21.3-54.2); Mean Corpuscular HGB Conc 32.8 GM/DL (32-36); Mean Corpuscular Volume 94.7 FL (87-102); Mean Platelet Volume 10.1 FL (9.6-12.0); Monocytes % 8.5 % (1.7-12.7); Neutrophils % 66.4 % (38.7-73.9); Red Blood Count 3.74 MC/CUMM (3.8-5.5); Red Cell Distribution Width 19.3 % (9.3-17.3); White Blood Count 5.2 T/CUMM (4-12)
[2019-03-07 08:09] LABS: Platelet Count 90 T/CUMM (130-400)
[2019-03-07 08:34] LABS: Hypochromasia 1+; Platelet Estimate Decreased
[2019-03-07 08:35] LABS: Macrocytosis Slight
[2019-03-07 08:39] LABS: Albumin 3.3 G/DL (3.4-5.0); Bilirubin,Total 1.1 MG/DL (0.2-1.0); Calcium 8.7 MG/DL (8.5-10.1); Osmolality,Calculated 294.6 MOS/KG (273-304); Total Protein 5.8 G/DL (6.4-8.3)
[2019-03-07] MEDS: carvediloL 12.5 MG TABLET PO SCH ×2 (09:04→20:26)
[2019-03-07] MEDS: CHOLECALCIFEROL 1,000 UNIT TABLET PO SCH (09:04)
[2019-03-07] MEDS: CYANOCOBALAMIN 500 MCG TABLET PO SCH (09:04)
[2019-03-07] MEDS: FOLIC ACID 0.4 MG TABLET PO SCH (09:04)
[2019-03-07] MEDS: PANTOPRAZOLE 40 MG TABLET PO SCH (09:05)
[2019-03-07] MEDS: CITALOPRAM 20 MG TABLET PO SCH (09:05)
[2019-03-07] MEDS: LEFLUNOMIDE 10 MG TABLET PO SCH (09:05)
[2019-03-07] MEDS: CALCIUM (CARBONATE) 600 MG TABLET PO SCH (09:06)
[2019-03-07] MEDS: FERROUS SULFATE 325 MG TABLET PO SCH ×2 (09:06→20:26)
[2019-03-07] MEDS: MULTIVITAMIN (CENTRUM) TABLET PO SCH (09:06)
[2019-03-07] MEDS ORDERED: ACETAMINOPHEN 500 MG TABLET PO PRN (14:11)
[2019-03-07] MEDS ORDERED: cefTRIAXone 1,000 MG in SYRINGE 1 EACH IV SCH (14:30)
[2019-03-07] MEDS: PRAZOSIN 1 MG CAPSULE PO SCH (20:26)
[2019-03-08 05:08] LABS: Basophils % 0.7 % (0.0-0.8); Eosinophils # 0.2 10*3/uL (0.0-0.87); Eosinophils % 3.4 % (0.00-10.9); Hematocrit 34.5 VOL% (35.7-47.0); Hemoglobin 11.1 GM/DL (12.0-16.0); Immature Granulocytes % 0.4 %; Immature Granulocytes Absolute 0.02 #; Lymphocytes % 18.2 % (21.3-54.2); Mean Corpuscular HGB Conc 32.2 GM/DL (32-36); Mean Corpuscular Volume 95.3 FL (87-102); Mean Platelet Volume 10.3 FL (9.6-12.0); Neutrophils % 67.3 % (38.7-73.9); Red Blood Count 3.62 MC/CUMM (3.8-5.5); Red Cell Distribution Width 18.9 % (9.3-17.3); White Blood Count 5.6 T/CUMM (4-12)
[2019-03-08 05:12] LABS: Platelet Count 97 T/CUMM (130-400)
[2019-03-08 05:26] LABS: Hypochromasia 1+; Macrocytosis Slight; Ovalocytes Slight; Platelet Estimate Decreased
[2019-03-08 05:45] LABS: Bilirubin,Total 0.4 MG/DL (0.2-1.0); Calcium 8.1 MG/DL (8.5-10.1); Osmolality,Calculated 286.1 MOS/KG (273-304); Total Protein 5.4 G/DL (6.4-8.3)
[2019-03-08] MEDS: LEVOTHYROXINE 137 MCG TABLET PO SCH (05:54)
[2019-03-08] MEDS: CYANOCOBALAMIN 500 MCG TABLET PO SCH (08:57)
[2019-03-08] MEDS: CALCIUM (CARBONATE) 600 MG TABLET PO SCH (08:58)
[2019-03-08] MEDS: CITALOPRAM 20 MG TABLET PO SCH (08:59)
[2019-03-08] MEDS: CHOLECALCIFEROL 1,000 UNIT TABLET PO SCH (08:59)
[2019-03-08] MEDS: MULTIVITAMIN (CENTRUM) TABLET PO SCH (08:59)
[2019-03-08] MEDS: PANTOPRAZOLE 40 MG TABLET PO SCH (08:59)
[2019-03-08] MEDS: carvediloL 12.5 MG TABLET PO SCH (08:59)
[2019-03-08] MEDS: FERROUS SULFATE 325 MG TABLET PO SCH (08:59)
[2019-03-08] MEDS: FOLIC ACID 0.4 MG TABLET PO SCH (08:59)
[2019-03-08] MEDS: LEFLUNOMIDE 10 MG TABLET PO SCH (08:59)
[2019-03-08 11:37] VITALS: BP 160/75
== END 2019-03-08 14:10 | disposition home or self-care (01) | DRG 813 ==
LOC: N.ED 11:51 → N.EDINP 15:15 → N.5E 16:11
PROVIDERS: ADMIT Internal Medicine; ATTEND Internal Medicine